=== PATIENT | male | born 1995 | race Caucasian/White ===

== ENCOUNTER 2019-03-19 00:55 | Emergency (ER) | payer OTHER ==
[~2019-03-19] VITALS: Ht 167.6 cm; Wt 75.7 kg
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
--- NOTE | 2019-03-19 00:55 | NUR ---
PT BIB [facility], PREBOOK. TAKEN TO CHAIR C
[2019-03-19 00:58] VITALS: BP 161/78
--- NOTE | 2019-03-19 01:06 | NUR ---
Dr. Valdes examining patient.
[2019-03-19 01:15] VITALS: BP 161/78
--- NOTE | 2019-03-19 01:15 | NUR ---
[facility] DEPT. PATIENT EXAMINED BY DR. COREY. PATIENT MEDICALLY CLEARED AND RELEASED IN CUSTODY IN STABLE CONDITION. ORIGINAL PRE-BOOK FORM GIVEN TO [facility] OFFICER.
== END 2019-03-19 01:15 ==
LOC: MED 00:55
DX: Z02.89 Encounter for other administrative examinations (principal); V89.2XXA Person injured in unspecified motor-vehicle accident, traffic, initial encounter; Y93.89 Activity, other specified; Y92.410 Unspecified street and highway as the place of occurrence of the external cause; Y99.8 Other external cause status
CPT/HCPCS: 99283